=== PATIENT | female | born 1985 | race Caucasian/White ===

== ENCOUNTER 2020-09-05 05:30 | Inpatient (IN) | payer OTHER ==
[2020-09-05] MEDS ORDERED: Docusate 100 MG CAP PO PRN (05:42)
[2020-09-05] MEDS ORDERED: Ondansetron PF 4 MG/2 ML Vial IVP PRN ×3 (05:42→22:23)
[2020-09-05] MEDS ORDERED: NS / Oxytocin 40 units/1000ml 1,000 ML IV PRN (05:42)
[2020-09-05] MEDS ORDERED: Ibuprofen 800 MG TAB PO PRN (05:42)
[2020-09-05] MEDS ORDERED: HYDROcodone/Acetaminophen 5/325 mg Tablet PO PRN ×4 (05:42→22:23)
[2020-09-05] MEDS ORDERED: hydrALAZINE 20 MG/ML VIAL SLOW IVP PRN ×2 (05:42→22:23)
[2020-09-05] MEDS ORDERED: Butorphanol Tartrate 1 MG/ML VIAL SLOW IVP PRN (05:42)
[2020-09-05] MEDS ORDERED: Diphenoxylate HCl/Atropine Tablet PO PRN ×2 (05:42)
[2020-09-05] MEDS ORDERED: Misoprostol 200 MCG TAB PR PRN (05:42)
[2020-09-05] MEDS ORDERED: Lidocaine 1% (PF) 30 ML VIAL SC PRN (05:42)
[2020-09-05] MEDS ORDERED: Acetaminophen 500 MG TAB PO PRN (05:42)
[2020-09-05] MEDS ORDERED: Promethazine HCl 25 MG/ML VIAL IM PRN ×2 (05:42→12:47)
[2020-09-05] MEDS ORDERED: NS w/ Oxytocin 30 units 500 ML IV PRN (05:54)
[2020-09-05] MEDS ORDERED: Penicillin G Potassium 5 MILL.UNITS in Sodium Chloride 0.9% 100 ML IVPB SCH (06:00)
[2020-09-05 07:11] LABS: Hemoglobin 11.8 g/dL (12.0-15.5); Mean Corpuscular HGB CONC 34.2 g/dL (32.0-36.0); Mean Corpuscular Hemoglobin 32.5 pg (27.0-33.0); Mean Platelet Volume 11.1 fl (7.4-10.4); Platelet Count 146 10x3/uL (150-450); RBC Distribution Width 12.7 % (11.5-14.5); Red Blood Cell (RBC) Count 3.63 10x6/uL (3.90-5.03); White Blood Cell (WBC) Count 10.5 10x3/uL (3.5-10.5)
[2020-09-05 07:41] VITALS: BMI 34.7
[2020-09-05 07:53] LABS: Hep B Surf Ag Non-Reactive S/CO (NonReactive)
[2020-09-05 07:54] LABS: Syphilis Antibody Nonreactive (Nonreactive); Syphilis Antibody Index 0.02 S/CO (<1.00 Non-Reactive)
[2020-09-05 08:26] LABS: HBSAg Index 0.22 S/CO (0-0.99)
[2020-09-05] MEDS: Penicillin G 2.5 MILL.units 2.5 MILL.UNITS in Premix Bag 1 BAG IVPB SCH ×2 (10:57→15:05)
[2020-09-05] MEDS ORDERED: Fentanyl 4 mcg/Bup 0.1% Cadd 100 ML ONE (11:32)
[2020-09-05] MEDS: Lactated Ringer's 1,000 ML IV SCH ×2 (12:00→15:05)
[2020-09-05] MEDS ORDERED: Lactated Ringer's 500 ML IV PRN (12:47)
[2020-09-05] MEDS ORDERED: diphenhydrAMINE 50 MG/ML VIAL IVP PRN (12:47)
[2020-09-05] MEDS ORDERED: Naloxone HCl 0.4 mg/ml Vial IVP PRN ×2 (12:47)
[2020-09-05] MEDS ORDERED: ePHEDrine 50 MG/ML VIAL SLOW IVP PRN (12:47)
[2020-09-05] MEDS ORDERED: Communication Order-Pharmacy FS SCH (13:00)
[2020-09-05] MEDS ORDERED: Fentanyl 4 mcg/Bupivacaine 0.1% Cassette 100 ML EPIDURAL SCH (13:00)
[2020-09-05] MEDS: Acetaminophen 325 MG TAB PO PRN ×2 (13:22→20:51)
[2020-09-05] MEDS ORDERED: Bisacodyl 10 MG SUPP PR PRN (22:23)
[2020-09-05] MEDS ORDERED: Misoprostol 200 MCG TAB VAG PRN (22:23)
[2020-09-05] MEDS ORDERED: Milk Of Magnesia 30 ML UDCUP PO PRN (22:23)
[2020-09-05] MEDS ORDERED: Lanolin Ointment 7 GM TUBE TOP PRN (22:23)
[2020-09-05] MEDS ORDERED: Zolpidem Tartrate 5 MG TAB PO PRN (22:23)
[2020-09-05] MEDS ORDERED: Benzocaine-Menthol 82.5 ML CAN TOP PRN (22:23)
[2020-09-05] MEDS ORDERED: Preparation H Ointment 28 GM TUBE PR PRN (22:23)
[2020-09-05] MEDS ORDERED: NS / Oxytocin 40 units/1000ml 1,000 ML IV SCH (22:23)
[2020-09-05] MEDS ORDERED: diphenhydrAMINE 25 MG CAP PO PRN (22:23)
[2020-09-05] MEDS ORDERED: Ibuprofen 800 MG TAB PO SCH (22:45)
[2020-09-05] MEDS ORDERED: Docusate Calcium (SURFAK) 240 MG CAP PO SCH (22:45)
[2020-09-06] MEDS: Ibuprofen 800 MG TAB PO SCH ×4 (05:56→21:09)
[2020-09-06 06:08] LABS: Hemoglobin 11.1 g/dL (12.0-15.5)
[2020-09-06] MEDS: Docusate Calcium (SURFAK) 240 MG CAP PO SCH ×2 (08:16→21:10)
[2020-09-06] MEDS: Prenatal Vitamin 1 TAB PO SCH (08:24)
[2020-09-06] MEDS ORDERED: Adacel (T-DAP) 0.5 ML SYRINGE IM ONE (09:00)
[2020-09-06] MEDS: Ferrous Sulfate 325 MG TAB PO SCH ×2 (14:00→16:46)
[2020-09-07] MEDS: Ibuprofen 800 MG TAB PO SCH (06:51)
[2020-09-07 07:47] VITALS: TEMP 98.5
[2020-09-07 08:42] VITALS: BP 122/74
[2020-09-07] MEDS: Ferrous Sulfate 325 MG TAB PO SCH (09:27)
[2020-09-07] MEDS: Docusate Calcium (SURFAK) 240 MG CAP PO SCH (09:28)
[2020-09-07] MEDS: Prenatal Vitamin 1 TAB PO SCH (09:28)
== END 2020-09-07 11:55 | disposition home or self-care (01) | DRG 807 ==
LOC: CSHLD 05:37 → CSHPP 23:57
PROVIDERS: ADMIT Obstetrics & Gynecology; ATTEND Obstetrics & Gynecology
PROC: 10D07Z6 Extraction of Products of Conception, Vacuum, Via Natural or Artificial Opening (ICD-10-PCS; principal; 2020-09-05)
PROC: 0KQM0ZZ Repair Perineum Muscle, Open Approach (ICD-10-PCS; 2020-09-05)
DX: O99.824 Streptococcus B carrier state complicating childbirth (principal); Z37.0 Single live birth; Z3A.39 39 weeks gestation of pregnancy; O99.892 Other specified diseases and conditions complicating childbirth; R00.1 Bradycardia, unspecified; O70.1 Second degree perineal laceration during delivery
CPT/HCPCS: 36415; 51702; 85014; 85018; 85027; 86780; 86850; 86900; 86901; 87340; 87635; J2405; J2540; J2550; J2590; U0003; U0005

== ENCOUNTER 2022-06-12 18:50 | Inpatient (IN) | payer BC ==
[~2022-06-12 18:50] MED LIST: Bupivacaine 0.25% HCL 30 ML VIAL ONE; ePHEDrine Sulfate 50 MG/10 ML VIAL ONE
[2022-06-12] MEDS ORDERED: Acetaminophen 500 MG TAB PO PRN (18:53)
[2022-06-12] MEDS ORDERED: Zolpidem Tartrate 5 MG TAB PO PRN (18:53)
[2022-06-12] MEDS ORDERED: Promethazine HCl 25 MG/ML VIAL IVPB PRN (18:53)
[2022-06-12] MEDS ORDERED: Butorphanol Tartrate 1 MG/ML VIAL SLOW IVP PRN (18:53)
[2022-06-12] MEDS ORDERED: hydrALAZINE 20 MG/ML VIAL SLOW IVP PRN ×2 (18:53→18:56)
[2022-06-12] MEDS ORDERED: Docusate 100 MG CAP PO PRN (18:56)
[2022-06-12] MEDS ORDERED: Ibuprofen 800 MG TAB PO PRN (18:56)
[2022-06-12] MEDS ORDERED: HYDROcodone/Acetaminophen 5/325 mg Tablet PO PRN ×2 (18:56)
[2022-06-12] MEDS ORDERED: Diphenoxylate HCl/Atropine Tablet PO PRN ×2 (18:56)
[2022-06-12] MEDS ORDERED: Lidocaine 1% (PF) 30 ML VIAL SC PRN (18:56)
[2022-06-12] MEDS ORDERED: Misoprostol 200 MCG TAB PR PRN (18:56)
[2022-06-12] MEDS ORDERED: NS w/ Oxytocin 30 units 500 ML IV SCH ×2 (19:00)
[2022-06-12 19:16] VITALS: BMI 34.8
[2022-06-12] MEDS: Misoprostol 100 MCG TAB VAG SCH ×2 (20:07→23:51)
[2022-06-12] MEDS: Lactated Ringer's 1,000 ML IV SCH (20:07)
[2022-06-12 20:09] LABS: Hemoglobin 11.9 g/dL (12.0-15.5); Mean Corpuscular HGB CONC 35.5 g/dL (32.0-36.0); Mean Corpuscular Hemoglobin 32.9 pg (27.0-33.0); Mean Corpuscular Volume 92.5 fl (81.6-98.3); Platelet Count 178 10x3/uL (150-450); RBC Distribution Width 12.5 % (11.5-14.5); Red Blood Cell (RBC) Count 3.62 10x6/uL (3.90-5.03); White Blood Cell (WBC) Count 10.7 10x3/uL (3.5-10.5)
[2022-06-12 20:42] LABS: HBSAg Index 0.13 S/CO (0-0.99); HIV (1/2) Antibody/Antigen Non-Reactive (NonReactive); HIV 1/2 INDEX 0.08 S/CO (<1.00); Hep B Surf Ag Non-Reactive S/CO (NonReactive)
[2022-06-12 20:43] LABS: Syphilis Antibody Nonreactive (Nonreactive); Syphilis Antibody Index 0.04 S/CO (<1.00 Non-Reactive)
[2022-06-13] MEDS: Misoprostol 100 MCG TAB VAG SCH ×3 (05:02→19:22)
[2022-06-13] MEDS: Promethazine HCl 12.5 MG in Sodium Chloride 0.9% 50 ML IVPB PRN ×2 (05:55→08:07)
[2022-06-13] MEDS ORDERED: Fentanyl 2 mcg/Bup 0.1% Cadd 100 ML ONE (06:05)
[2022-06-13] MEDS ORDERED: Moisturizing Cream (Eucerin) 113 GM JAR TOP PRN (06:54)
[2022-06-13] MEDS ORDERED: Lactated Ringer's 500 ML IV PRN (06:54)
[2022-06-13] MEDS ORDERED: Ondansetron PF 4 MG/2 ML Vial IVP PRN ×2 (06:54→11:55)
[2022-06-13] MEDS ORDERED: Acetaminophen 325 MG TAB PO PRN (06:54)
[2022-06-13] MEDS ORDERED: Promethazine HCl 25 MG/ML VIAL IM PRN (06:54)
[2022-06-13] MEDS ORDERED: Naloxone HCl 0.4 mg/ml Vial IVP PRN ×2 (06:54)
[2022-06-13] MEDS ORDERED: diphenhydrAMINE 50 MG/ML VIAL IVP PRN (06:54)
[2022-06-13] MEDS ORDERED: ePHEDrine Sulfate 50 MG/10 ML VIAL SLOW IVP PRN (06:54)
[2022-06-13] MEDS ORDERED: Communication Order-Pharmacy FS SCH (07:00)
[2022-06-13] MEDS ORDERED: Fentanyl 2 mcg/Bupivacaine 0.1% Cassette 100 ML EPIDURAL SCH (07:00)
[2022-06-13] MEDS ORDERED: Boostrix 0.5 ML (Tdap) VIAL (>/=7 yrs of age) IM ONE (11:55)
[2022-06-13] MEDS ORDERED: Preparation H Ointment 28 GM TUBE PR PRN (11:55)
[2022-06-13] MEDS ORDERED: Benzocaine-Menthol 82.5 ML CAN TOP PRN (11:55)
[2022-06-13] MEDS ORDERED: diphenhydrAMINE 25 MG CAP PO PRN (11:55)
[2022-06-13] MEDS ORDERED: Bisacodyl 10 MG SUPP PR PRN (11:55)
[2022-06-13] MEDS ORDERED: Lanolin Ointment 7 GM TUBE TOP PRN (11:55)
[2022-06-13] MEDS ORDERED: Milk Of Magnesia 30 ML UDCUP PO PRN (11:55)
[2022-06-13] MEDS ORDERED: hydrALAZINE 20 MG/ML VIAL SLOW IVP PRN (11:55)
[2022-06-13] MEDS ORDERED: Misoprostol 200 MCG TAB VAG PRN (11:55)
[2022-06-13] MEDS: Ferrous Sulfate 325 MG TAB PO SCH (19:21)
[2022-06-13] MEDS: Ibuprofen 800 MG TAB PO SCH (19:21)
[2022-06-13] MEDS: Lactated Ringer's 1,000 ML IV SCH (19:22)
[2022-06-14] MEDS: Docusate 100 MG CAP PO SCH ×2 (01:02→09:50)
[2022-06-14] MEDS: Ibuprofen 800 MG TAB PO SCH ×3 (01:02→14:30)
[2022-06-14] MEDS ORDERED: HYDROcodone/Acetaminophen 5/325 mg Tablet PO PRN ×4 (01:08→06:54)
[2022-06-14 03:30] LABS: Mean Corpuscular HGB CONC 34.2 g/dL (32.0-36.0); Mean Corpuscular Hemoglobin 32.3 pg (27.0-33.0); Mean Corpuscular Volume 94.2 fl (81.6-98.3); Platelet Count 151 10x3/uL (150-450); RBC Distribution Width 12.9 % (11.5-14.5); White Blood Cell (WBC) Count 11.7 10x3/uL (3.5-10.5)
[2022-06-14] MEDS ORDERED: Zolpidem Tartrate 5 MG TAB PO PRN (06:54)
[2022-06-14] MEDS ORDERED: Prenatal Vitamin 1 TAB PO SCH (09:00)
[2022-06-14] MEDS: Ferrous Sulfate 325 MG TAB PO SCH (09:50)
[2022-06-14 12:12] VITALS: BP 110/65; TEMP 98.4
== END 2022-06-14 14:55 | disposition home or self-care (01) | DRG 806 ==
LOC: OBSVTOIN 18:50 → CSHLD 18:50 → CSHPP 06-13 17:54
PROVIDERS: ADMIT Obstetrics & Gynecology; ATTEND Obstetrics & Gynecology
PROC: 10E0XZZ Delivery of Products of Conception, External Approach (ICD-10-PCS; principal; 2022-06-13)
PROC: 0UQMXZZ Repair Vulva, External Approach (ICD-10-PCS; 2022-06-13)
PROC: 10907ZC Drainage of Amniotic Fluid, Therapeutic from Products of Conception, Via Natural or Artificial Opening (ICD-10-PCS; 2022-06-13)
PROC: 3E0P7VZ Introduction of Hormone into Female Reproductive, Via Natural or Artificial Opening (ICD-10-PCS; 2022-06-13)
DX: O32.1XX0 Maternal care for breech presentation, not applicable or unspecified (principal); O99.354 Diseases of the nervous system complicating childbirth; Z37.0 Single live birth; Z3A.39 39 weeks gestation of pregnancy; G43.909 Migraine, unspecified, not intractable, without status migrainosus; Z86.16 Personal history of COVID-19; O24.420 Gestational diabetes mellitus in childbirth, diet controlled; Z79.899 Other long term (current) drug therapy; O76 Abnormality in fetal heart rate and rhythm complicating labor and delivery; O70.0 First degree perineal laceration during delivery; Z88.8 Allergy status to other drugs, medicaments and biological substances
CPT/HCPCS: 36415; 51702; 85027; 86780; 86850; 86900; 86901; 87340; 87389; J2550; J2590; J7120; S0020